=== PATIENT | female | born 1940 | race Caucasian/White ===

== ENCOUNTER 2024-02-13 11:24 | Inpatient (IN) | payer OTHER, MEDICAID ==
[~2024-02-13] VITALS: Ht 170.2 cm; Wt 61.2 kg
[2024-02-13 11:27] VITALS: BP_SYST 162; PULSE 112; RESP 18; TEMP 100.4; O2SAT 94
[2024-02-13] MEDS ORDERED: iohexoL 350 mgI/mL, 100 ML INFUS..BTL IV ONE (11:34)
[2024-02-13] MEDS ORDERED: cefTRIAXone 1 GM VIAL ONE (12:01)
[2024-02-13] MEDS: NACL 0.9% 1,000 ML IV ONE (12:03)
[2024-02-13] MEDS: cefTRIAXone 1 GM in D5W 50 ML IV ONE (12:03)
[2024-02-13] MEDS: ACETAMINOPHEN 650 MG SUPP.RECT RC ONE (12:04)
[2024-02-13 12:06] LABS: BASOPHILS % (AUTO) 0.6 % (0.0-2.0); HEMATOCRIT 42.1 % (36-48); HEMOGLOBIN 14.7 g/dL (12.0-16.0); LYMPHOCYTES # (AUTO) 0.7 K/uL (1.0-5.5); LYMPHOCYTES % (AUTO) 9.8 % (20.5-51.5); MEAN CORPUSCULAR HEMOGLOBIN 29 pg (27-31); MEAN CORPUSCULAR HGB CONC 35 % (32-36); MEAN CORPUSCULAR VOLUME 84 fL (79.0-98.0); MONOCYTES # (AUTO) 0.5 K/uL (0.0-1.0); MONOCYTES % (AUTO) 7.5 % (1.7-9.3); NEUTROPHILS # (AUTO) 5.9 K/uL (1.8-7.7); NEUTROPHILS % (AUTO) 82.1 % (40.0-70.0); PLATELET COUNT (AUTO) 173 K/uL (130-430); RED BLOOD CELL COUNT(AUTO) 5.03 MIL/uL (4.2-6.2); RED CELL DISTRIBUTION WIDTH 14.3 % (9.0-15.0); WHITE BLOOD COUNT (AUTO) 7.1 K/uL (4.8-10.8)
[2024-02-13 12:17] LABS: INR 1.2 (0.8-1.2); PROTHROMBIN TIME 11.9 SECS (9.5-12.5)
[2024-02-13 12:25] LABS: ALANINE AMINOTRANSFERASE 57 U/L (12-78); ALBUMIN 2.9 g/dL (3.4-4.8); ANION GAP 10 (5-15); ASPARTATE AMINOTRANSFERASE 66 U/L (10-37); BILIRUBIN,DIRECT 0.2 mg/dL (0.0-0.3); CALCIUM 8.6 mg/dL (8.4-11.0); CARBON DIOXIDE 27 mmol/L (23-29); CHLORIDE 99 mmol/L (98-107); CREATINE KINASE, TOTAL 517 U/L (26-192); CREATININE 0.98 mg/dL (0.55-1.30); GLUCOSE 133 mg/dL (74-106); POTASSIUM 3.4 mmol/L (3.5-5.1); SODIUM SERUM 136 mmol/L (136-145); TOTAL BILIRUBIN 0.7 mg/dL (0.0-1.0); TOTAL PROTEIN, SERUM 7.2 g/dL (6.4-8.3); UREA NITROGEN, BLOOD 17 mg/dL (8-21)
[2024-02-13] MEDS ORDERED: ASPI-989 (13:14)
[2024-02-13 15:13] LABS: INFLUENZA TYPE A Negative (NEGATIVE); INFLUENZA TYPE B NEGATIVE (NEGATIVE)
[2024-02-13] MEDS ORDERED: LORazepam 2 MG/ML VIAL IVP PRN (16:30)
[2024-02-13] MEDS ORDERED: HYDROcodone/ACETAMIN 10-325 MG TAB PO PRN (16:30)
[2024-02-13] MEDS ORDERED: ONDANSETRON HCL 4 MG/2 ML VIAL IVP PRN (16:30)
[2024-02-13] MEDS ORDERED: HYDROcodone/ACETAMIN 5-325 MG TAB (NORCO/ VICODIN) PO PRN (16:30)
[2024-02-13] MEDS ORDERED: ACETAMINOPHEN 325 MG TABLET PO PRN (16:45)
[2024-02-13 20:37] LABS: BILIRUBIN,URINE NEGATIVE (NEGATIVE); BLOOD, URINE 2+ (NEGATIVE); CLARITY/URINE CLEAR (CLEAR); COLOR,URINE YELLOW (YELLOW); GLUCOSE,URINE NEGATIVE (NEGATIVE); KETONES,URINE TRACE (NEGATIVE); LEUKOCYTE ESTERASE ,URINE NEGATIVE (NEGATIVE); NITRITE, URINE NEGATIVE (NEGATIVE); PROTEIN URINE 1+ (NEGATIVE)
[2024-02-13 20:44] LABS: BACTERIA,URINE FEW /HPF (None Seen); MUCUS,URINE None Seen /LPF (None Seen); RBC,URINE 0-3 /HPF (0-3); WBC,URINE 0-3 /HPF (0-3)
[2024-02-13 21:16] VITALS: BP_SYST 143; PULSE 78; RESP 18; TEMP 99.3; O2SAT 98
[2024-02-13] MEDS: NORMAL SALINE 5 ML DISP.SYRIN IVF SCH (22:00)
[2024-02-14 05:43] LABS: BASOPHILS % (AUTO) 0.5 % (0.0-2.0); HEMATOCRIT 38.2 % (36-48); HEMOGLOBIN 13.2 g/dL (12.0-16.0); LYMPHOCYTES # (AUTO) 0.8 K/uL (1.0-5.5); LYMPHOCYTES % (AUTO) 13.1 % (20.5-51.5); MEAN CORPUSCULAR HEMOGLOBIN 29 pg (27-31); MEAN CORPUSCULAR HGB CONC 35 % (32-36); MEAN CORPUSCULAR VOLUME 84 fL (79.0-98.0); MONOCYTES # (AUTO) 0.4 K/uL (0.0-1.0); MONOCYTES % (AUTO) 6.9 % (1.7-9.3); NEUTROPHILS # (AUTO) 4.9 K/uL (1.8-7.7); NEUTROPHILS % (AUTO) 79.5 % (40.0-70.0); PLATELET COUNT (AUTO) 138 K/uL (130-430); RED BLOOD CELL COUNT(AUTO) 4.57 MIL/uL (4.2-6.2); RED CELL DISTRIBUTION WIDTH 14.2 % (9.0-15.0); WHITE BLOOD COUNT (AUTO) 6.2 K/uL (4.8-10.8)
[2024-02-14 08:16] LABS: ALANINE AMINOTRANSFERASE 56 U/L (12-78); ALBUMIN 2.3 g/dL (3.4-4.8); ANION GAP 9 (5-15); ASPARTATE AMINOTRANSFERASE 74 U/L (10-37); CALCIUM 7.6 mg/dL (8.4-11.0); CARBON DIOXIDE 26 mmol/L (23-29); CHLORIDE 106 mmol/L (98-107); CREATININE 0.77 mg/dL (0.55-1.30); GLUCOSE 98 mg/dL (74-106); PHOSPHORUS 2.7 mg/dL (2.7-4.5); SODIUM SERUM 141 mmol/L (136-145); TOTAL BILIRUBIN 0.5 mg/dL (0.0-1.0); TOTAL PROTEIN, SERUM 5.9 g/dL (6.4-8.3); UREA NITROGEN, BLOOD 13 mg/dL (8-21)
[2024-02-14 08:20] VITALS: BP_SYST 159; PULSE 101; RESP 16; TEMP 98.7; O2SAT 96
[2024-02-14] MEDS: ASPIRIN 325 MG TABLET PO SCH (09:22)
[2024-02-14 09:30] VITALS: O2SAT 96
[2024-02-14 10:11] LABS: POTASSIUM 2.6 mmol/L (3.5-5.1)
[2024-02-14 11:23] VITALS: BP_SYST 156; PULSE 82; RESP 16; TEMP 99.1; O2SAT 98
[2024-02-14] MEDS: POTASSIUM CHLORIDE 40 MEQ, LIDOCAINE JECT 2% PF 100 MG 75 MG in NS 250 ML IV ONE (14:22)
[2024-02-14] MEDS: cefTRIAXone 1 GM in D5W 50 ML IV ONE (14:25)
[2024-02-14 15:01] VITALS: BP_SYST 171; PULSE 62; RESP 16; TEMP 99.4; O2SAT 94
[2024-02-14] MEDS: HYDROCHLOROTHIAZIDE 25 MG TABLET (HCTZ) PO ONE (15:49)
[2024-02-14] MEDS: CALCIUM GLUC 2 GM/100ML-NACL 100 ML IV ONE (15:51)
[2024-02-14] MEDS ORDERED: POTASSIUM CHLORIDE 40 MEQ in NS 250 ML IV ONE (18:00)
[2024-02-14 20:00] VITALS: BP_SYST 170; PULSE 75; RESP 18; TEMP 99.2; O2SAT 94
[2024-02-15] VITALS: BP_SYST 145; PULSE 78; RESP 18; TEMP 98.2; O2SAT 95
[2024-02-15 05:19] LABS: BASOPHILS # (AUTO) 0.1 K/uL (0.0-0.2); BASOPHILS % (AUTO) 0.6 % (0.0-2.0); HEMATOCRIT 40.6 % (36-48); HEMOGLOBIN 14.1 g/dL (12.0-16.0); LYMPHOCYTES # (AUTO) 0.9 K/uL (1.0-5.5); LYMPHOCYTES % (AUTO) 9.8 % (20.5-51.5); MEAN CORPUSCULAR HEMOGLOBIN 29 pg (27-31); MEAN CORPUSCULAR HGB CONC 35 % (32-36); MEAN CORPUSCULAR VOLUME 83 fL (79.0-98.0); MONOCYTES # (AUTO) 0.6 K/uL (0.0-1.0); MONOCYTES % (AUTO) 6.2 % (1.7-9.3); NEUTROPHILS % (AUTO) 83.4 % (40.0-70.0); PLATELET COUNT (AUTO) 120 K/uL (130-430); RED BLOOD CELL COUNT(AUTO) 4.86 MIL/uL (4.2-6.2); RED CELL DISTRIBUTION WIDTH 14.4 % (9.0-15.0); WHITE BLOOD COUNT (AUTO) 9.6 K/uL (4.8-10.8)
[2024-02-15 05:29] LABS: ERYTHROCYTE SEDIMENTATION RATE 31 MM/HR (0-20)
[2024-02-15 05:35] LABS: ANION GAP 14 (5-15); CALCIUM 8.5 mg/dL (8.4-11.0); CARBON DIOXIDE 23 mmol/L (23-29); CHLORIDE 99 mmol/L (98-107); CREATININE 0.82 mg/dL (0.55-1.30); GLUCOSE 110 mg/dL (74-106); SODIUM SERUM 136 mmol/L (136-145); UREA NITROGEN, BLOOD 16 mg/dL (8-21)
[2024-02-15 07:25] VITALS: BP_SYST 142; PULSE 102; RESP 18; TEMP 98.2; O2SAT 96
[2024-02-15 07:49] LABS: POTASSIUM 2.6 mmol/L (3.5-5.1)
[2024-02-15] MEDS: HYDROCHLOROTHIAZIDE 25 MG TABLET (HCTZ) PO SCH (09:00)
[2024-02-15 09:30] VITALS: O2SAT 96
[2024-02-15] MEDS: POTASSIUM CHLORIDE 40 MEQ, LIDOCAINE JECT 2% PF 100 MG 75 MG in NS 250 ML IV ONE (13:09)
[2024-02-15] MEDS: cefTRIAXone 1 GM in D5W 50 ML IV SCH (13:10)
[2024-02-15] MEDS: ACETAMINOPHEN 325 MG TABLET PO PRN (16:19)
[2024-02-15 18:02] VITALS: BP_SYST 158; PULSE 116; RESP 18; TEMP 98.4; O2SAT 96
[2024-02-15 20:00] VITALS: BP_SYST 116; PULSE 99; RESP 18; TEMP 99; O2SAT 95
[2024-02-16 00:30] VITALS: BP_SYST 132; PULSE 89; RESP 18; TEMP 97.8; O2SAT 96
[2024-02-16 06:31] LABS: BASOPHILS # (AUTO) 0.1 K/uL (0.0-0.2); BASOPHILS % (AUTO) 1.1 % (0.0-2.0); HEMATOCRIT 40.6 % (36-48); HEMOGLOBIN 14.1 g/dL (12.0-16.0); LYMPHOCYTES # (AUTO) 0.6 K/uL (1.0-5.5); LYMPHOCYTES % (AUTO) 5.9 % (20.5-51.5); MEAN CORPUSCULAR HEMOGLOBIN 29 pg (27-31); MEAN CORPUSCULAR HGB CONC 35 % (32-36); MEAN CORPUSCULAR VOLUME 83 fL (79.0-98.0); MONOCYTES # (AUTO) 0.5 K/uL (0.0-1.0); MONOCYTES % (AUTO) 4.2 % (1.7-9.3); NEUTROPHILS # (AUTO) 9.6 K/uL (1.8-7.7); NEUTROPHILS % (AUTO) 88.8 % (40.0-70.0); PLATELET COUNT (AUTO) 125 K/uL (130-430); RED CELL DISTRIBUTION WIDTH 14.4 % (9.0-15.0); WHITE BLOOD COUNT (AUTO) 10.8 K/uL (4.8-10.8)
[2024-02-16 06:34] LABS: ERYTHROCYTE SEDIMENTATION RATE 33 MM/HR (0-20)
[2024-02-16 06:50] LABS: ANION GAP 13 (5-15); CALCIUM 8.2 mg/dL (8.4-11.0); CARBON DIOXIDE 24 mmol/L (23-29); CHLORIDE 99 mmol/L (98-107); CREATININE 0.85 mg/dL (0.55-1.30); GLUCOSE 124 mg/dL (74-106); SODIUM SERUM 136 mmol/L (136-145); UREA NITROGEN, BLOOD 24 mg/dL (8-21)
[2024-02-16 06:59] LABS: POTASSIUM 2.5 mmol/L (3.5-5.1)
[2024-02-16 07:30] VITALS: BP_SYST 153; PULSE 123; RESP 16; TEMP 98.2; O2SAT 94
[2024-02-16 09:45] VITALS: O2SAT 94
[2024-02-16] MEDS: CALCIUM GLUC 2 GM/100ML-NACL 100 ML IV ONE (11:52)
[2024-02-16] MEDS: KCL 40mEq in D5/0.45NS 1000 mL 1,000 ML IV SCH (11:52)
[2024-02-16] MEDS: POTASSIUM CHLORIDE 20 MEQ/PKT PACKET PO ONE (11:52)
[2024-02-16 12:00] VITALS: BP_SYST 132; PULSE 87; RESP 15; TEMP 97.4; O2SAT 94
[2024-02-16] MEDS: POTASSIUM CHLORIDE 40 MEQ in NS 250 ML IV ONE (12:10)
[2024-02-16] MEDS: POTASSIUM CHLORIDE 20 MEQ TABLET.ER PO ONE (18:36)
[2024-02-16 20:00] VITALS: BP_SYST 134; PULSE 106; RESP 16; TEMP 97.7; O2SAT 96
[2024-02-17] VITALS: BP_SYST 141; PULSE 101; RESP 16; TEMP 99.1; O2SAT 95
[2024-02-17 05:45] LABS: BASOPHILS % (AUTO) 0.3 % (0.0-2.0); EOSINOPHILS % (AUTO) 0.2 % (0.0-4.0); LYMPHOCYTES # (AUTO) 1.1 K/uL (1.0-5.5); LYMPHOCYTES % (AUTO) 10.5 % (20.5-51.5); MEAN CORPUSCULAR HEMOGLOBIN 29 pg (27-31); MEAN CORPUSCULAR HGB CONC 34 % (32-36); MEAN CORPUSCULAR VOLUME 83 fL (79.0-98.0); MONOCYTES # (AUTO) 0.6 K/uL (0.0-1.0); MONOCYTES % (AUTO) 5.5 % (1.7-9.3); NEUTROPHILS # (AUTO) 8.4 K/uL (1.8-7.7); NEUTROPHILS % (AUTO) 83.5 % (40.0-70.0); PLATELET COUNT (AUTO) 114 K/uL (130-430); RED BLOOD CELL COUNT(AUTO) 4.56 MIL/uL (4.2-6.2); RED CELL DISTRIBUTION WIDTH 14.5 % (9.0-15.0)
[2024-02-17 06:16] LABS: ANION GAP 9 (5-15); CALCIUM 8.7 mg/dL (8.4-11.0); CARBON DIOXIDE 24 mmol/L (23-29); CHLORIDE 104 mmol/L (98-107); CREATININE 0.72 mg/dL (0.55-1.30); GLUCOSE 128 mg/dL (74-106); POTASSIUM 3.7 mmol/L (3.5-5.1); SODIUM SERUM 137 mmol/L (136-145); UREA NITROGEN, BLOOD 22 mg/dL (8-21)
[2024-02-17 08:00] VITALS: O2SAT 97
[2024-02-17 08:53] VITALS: BP_SYST 160; PULSE 111; RESP 18; TEMP 98.4; O2SAT 97
[2024-02-17 12:15] VITALS: BP_SYST 135; PULSE 98; RESP 18; TEMP 97.5; O2SAT 98
[2024-02-17 16:00] VITALS: BP_SYST 150; PULSE 102; RESP 20; TEMP 98.8; O2SAT 95
[2024-02-17] MEDS: METOPROLOL SUCCINATE 25 MG TAB.SR.24H (TOPROL XL) PO ONE (18:40)
[2024-02-17 20:00] VITALS: BP_SYST 140; PULSE 104; RESP 18; TEMP 98.5; O2SAT 95
[2024-02-17] MEDS: NORMAL SALINE 5 ML DISP.SYRIN IVF SCH (23:24)
[2024-02-18] VITALS (7 sets, daily range): BP systolic 103–141; PULSE 60–123; RESP 17–20; TEMP 97.3–100.6; O2SAT 94–98
[2024-02-18 05:57] LABS: BASOPHILS % (AUTO) 0.4 % (0.0-2.0); EOSINOPHILS % (AUTO) 0.2 % (0.0-4.0); HEMATOCRIT 41.8 % (36-48); HEMOGLOBIN 14.3 g/dL (12.0-16.0); LYMPHOCYTES # (AUTO) 1.2 K/uL (1.0-5.5); LYMPHOCYTES % (AUTO) 10.8 % (20.5-51.5); MEAN CORPUSCULAR HEMOGLOBIN 29 pg (27-31); MEAN CORPUSCULAR HGB CONC 34 % (32-36); MEAN CORPUSCULAR VOLUME 84 fL (79.0-98.0); MONOCYTES # (AUTO) 0.5 K/uL (0.0-1.0); MONOCYTES % (AUTO) 4.7 % (1.7-9.3); NEUTROPHILS % (AUTO) 83.9 % (40.0-70.0); PLATELET COUNT (AUTO) 120 K/uL (130-430); RED BLOOD CELL COUNT(AUTO) 4.99 MIL/uL (4.2-6.2); WHITE BLOOD COUNT (AUTO) 10.8 K/uL (4.8-10.8)
[2024-02-18 06:35] LABS: ALANINE AMINOTRANSFERASE 58 U/L (12-78); ALBUMIN 2.2 g/dL (3.4-4.8); ANION GAP 10 (5-15); ASPARTATE AMINOTRANSFERASE 68 U/L (10-37); CARBON DIOXIDE 24 mmol/L (23-29); CHLORIDE 100 mmol/L (98-107); GLUCOSE 113 mg/dL (74-106); PHOSPHORUS 2.3 mg/dL (2.7-4.5); POTASSIUM 3.7 mmol/L (3.5-5.1); SODIUM SERUM 134 mmol/L (136-145); TOTAL BILIRUBIN 0.5 mg/dL (0.0-1.0); TOTAL PROTEIN, SERUM 6.5 g/dL (6.4-8.3); UREA NITROGEN, BLOOD 19 mg/dL (8-21)
[2024-02-18] MEDS: METOPROLOL SUCCINATE 25 MG TAB.SR.24H (TOPROL XL) PO SCH (08:32)
[2024-02-18] MEDS ORDERED: METO-304 PO (10:24)
[2024-02-18] MEDS ORDERED: KCL 20 mEq in 100 mL (PREMIX) 100 ML IV ONE (11:00)
[2024-02-18] MEDS ORDERED: MAGNESIUM SULFATE 50 ML IV ONE (13:00)
[2024-02-19 00:25] VITALS: BP_SYST 111; PULSE 101; RESP 20; TEMP 97.3; O2SAT 96
[2024-02-19 06:10] LABS: BASOPHILS # (AUTO) 0.1 K/uL (0.0-0.2); BASOPHILS % (AUTO) 0.7 % (0.0-2.0); EOSINOPHILS % (AUTO) 0.4 % (0.0-4.0); HEMATOCRIT 38.6 % (36-48); HEMOGLOBIN 13.1 g/dL (12.0-16.0); LYMPHOCYTES # (AUTO) 1.4 K/uL (1.0-5.5); LYMPHOCYTES % (AUTO) 11.7 % (20.5-51.5); MEAN CORPUSCULAR HEMOGLOBIN 28 pg (27-31); MEAN CORPUSCULAR HGB CONC 34 % (32-36); MEAN CORPUSCULAR VOLUME 83 fL (79.0-98.0); MONOCYTES # (AUTO) 0.7 K/uL (0.0-1.0); MONOCYTES % (AUTO) 5.4 % (1.7-9.3); NEUTROPHILS # (AUTO) 9.9 K/uL (1.8-7.7); NEUTROPHILS % (AUTO) 81.8 % (40.0-70.0); PLATELET COUNT (AUTO) 128 K/uL (130-430); RED BLOOD CELL COUNT(AUTO) 4.64 MIL/uL (4.2-6.2); RED CELL DISTRIBUTION WIDTH 14.6 % (9.0-15.0); WHITE BLOOD COUNT (AUTO) 12.1 K/uL (4.8-10.8)
[2024-02-19 06:25] LABS: ANION GAP 10 (5-15); CALCIUM 7.5 mg/dL (8.4-11.0); CARBON DIOXIDE 23 mmol/L (23-29); CHLORIDE 102 mmol/L (98-107); CREATININE 0.71 mg/dL (0.55-1.30); GLUCOSE 108 mg/dL (74-106); POTASSIUM 3.3 mmol/L (3.5-5.1); SODIUM SERUM 135 mmol/L (136-145); UREA NITROGEN, BLOOD 25 mg/dL (8-21)
[2024-02-19 07:49] VITALS: BP_SYST 131; PULSE 101; RESP 20; TEMP 99.6; O2SAT 95
[2024-02-19 08:00] VITALS: O2SAT 95
[2024-02-19] MEDS: CALCIUM GLUC 2 GM/100ML-NACL 100 ML IV ONE (11:00)
[2024-02-19 11:09] VITALS: BP_SYST 118; PULSE 71; RESP 16; TEMP 96.7; O2SAT 93
[2024-02-19 14:28] VITALS: BP_SYST 120; PULSE 73; RESP 18; TEMP 96.9; O2SAT 94
== END 2024-02-19 15:10 | DRG 640 ==
LOC: SED 11:24 → STU 16:28 → SMU 02-19 10:40
PROVIDERS: ADMIT Preventive Medicine Preventive Medicine/Occupational Environmental Medicine; ATTEND Preventive Medicine Preventive Medicine/Occupational Environmental Medicine
DX: E87.6 Hypokalemia (principal); E43 Unspecified severe protein-calorie malnutrition; G93.41 Metabolic encephalopathy; N30.00 Acute cystitis without hematuria; E87.1 Hypo-osmolality and hyponatremia; E83.51 Hypocalcemia; I11.9 Hypertensive heart disease without heart failure; E88.09 Other disorders of plasma-protein metabolism, not elsewhere classified; E83.52 Hypercalcemia; E83.39 Other disorders of phosphorus metabolism; E11.65 Type 2 diabetes mellitus with hyperglycemia; D72.829 Elevated white blood cell count, unspecified; D69.6 Thrombocytopenia, unspecified; Z79.899 Other long term (current) drug therapy; Z68.21 Body mass index [BMI] 21.0-21.9, adult
CPT/HCPCS: 36415; 70450-TC; 70496; 70498; 71045; 80048; 80053; 80076; 81000; 81001; 81015; 82550; 82553; 82948; 83605; 83735; 84100; 84132; 84484; 85025; 85610; 85651; 85730; 87040; 87086; 92610-GN; 93005; 93306; 95816; 96365; 97110-GP; 97112-GP; 97116-GP; 97530-GP; 99285; G0378; J0610; J0696; J3480; J7050; J7060; Q9967